=== PATIENT | female | born 1960 | race American Indian/Alaskan Native ===

== ENCOUNTER → 2018-05-31 09:36 | Outpatient (CLI) | payer MEDICARE, SELFPAY ==
[2018-05-31 09:55] LABS: International Normalized Ratio 3.4; Prothrombin Time (Protime)PT. 34.6 SECONDS (11.7-14.9)
== END ==
PROVIDERS: Family Provider Family Medicine; PCP Family Medicine; Referring Provider Family Medicine; Visit Provider Family Medicine
DX: Z95.2 Presence of prosthetic heart valve (principal); I48.91 Unspecified atrial fibrillation
CPT/HCPCS: 85610

== ENCOUNTER → 2018-11-29 10:55 | Outpatient (CLI) | payer MEDICARE, SELFPAY ==
[2016-08-06 08:31] VITALS: BMI 67.0
[2018-11-29 11:17] LABS: International Normalized Ratio 3.3; Prothrombin Time (Protime)PT. 33.8 SECONDS (11.7-14.9)
== END ==
PROVIDERS: Family Provider Family Medicine; PCP Family Medicine; Referring Provider Family Medicine; Visit Provider Family Medicine
DX: I48.91 Unspecified atrial fibrillation (principal); Z95.2 Presence of prosthetic heart valve
CPT/HCPCS: 85610

== ENCOUNTER → 2019-03-28 11:05 | Outpatient (CLI) | payer MEDICARE, SELFPAY ==
[2016-08-06 08:31] VITALS: BMI 67.0
[2019-03-28 11:26] LABS: International Normalized Ratio 2.1; Prothrombin Time (Protime)PT. 23.6 SECONDS (11.7-14.9)
== END ==
PROVIDERS: Family Provider Family Medicine; PCP Family Medicine; Referring Provider Family Medicine; Visit Provider Family Medicine
DX: I48.91 Unspecified atrial fibrillation (principal); Z95.2 Presence of prosthetic heart valve
CPT/HCPCS: 85610

== ENCOUNTER → 2019-05-10 13:29 | Outpatient (CLI) | payer MEDICARE, SELFPAY ==
[2016-08-06 08:31] VITALS: BMI 67.0
[2019-05-10 13:56] LABS: International Normalized Ratio 2.3; Prothrombin Time (Protime)PT. 25.2 SECONDS (11.7-14.9)
== END ==
PROVIDERS: Family Provider Family Medicine; PCP Family Medicine; Referring Provider Family Medicine; Visit Provider Family Medicine
DX: I48.91 Unspecified atrial fibrillation (principal); Z95.2 Presence of prosthetic heart valve
CPT/HCPCS: 85610

== ENCOUNTER → 2019-05-24 15:33 | Outpatient (CLI) | payer MEDICARE, SELFPAY ==
[2019-05-24 16:33] LABS: International Normalized Ratio 2.8
== END ==
PROVIDERS: Family Provider Family Medicine; PCP Family Medicine; Referring Provider Family Medicine; Visit Provider Family Medicine
DX: Z95.2 Presence of prosthetic heart valve (principal); I48.91 Unspecified atrial fibrillation
CPT/HCPCS: 85610

== ENCOUNTER → 2019-06-01 12:02 | Outpatient (CLI) | payer MEDICARE, SELFPAY ==
[2016-08-06 08:31] VITALS: BMI 67.0
[2019-06-01 12:15] LABS: International Normalized Ratio 3.1; Prothrombin Time (Protime)PT. 31.9 SECONDS (11.7-14.9)
== END ==
PROVIDERS: Family Provider Family Medicine; PCP Family Medicine; Visit Provider Nurse Practitioner Primary Care
DX: K62.5 Hemorrhage of anus and rectum (principal)
CPT/HCPCS: 85610

== ENCOUNTER → 2019-06-23 12:14 | Outpatient (CLI) | payer MEDICARE, SELFPAY ==
[2019-06-23 12:36] LABS: International Normalized Ratio 2.8
== END ==
PROVIDERS: Family Provider Family Medicine; PCP Family Medicine; Referring Provider Family Medicine; Visit Provider Family Medicine
DX: I48.91 Unspecified atrial fibrillation (principal); Z95.2 Presence of prosthetic heart valve
CPT/HCPCS: 85610

== ENCOUNTER → 2019-09-13 08:41 | Outpatient (CLI) | payer MEDICARE, SELFPAY ==
[2019-09-13 09:26] LABS: Base Excess 2 mmol/L (-2 to +2); Bicarbonate 27.4 mmol/L (22-26); Blood Gas Specimen Type ART; O2 Delivery Device Room Air; PO2 78 mmHG (75-100); SITE R Brachial; SO2 95 % (95-99); Time Given 912; Total Carbon Dioxide 29 mmol/L; pCO2 45.4 mmHg (35-45); pH 7.39 (7.35-7.45)
== END ==
LOC: PSN 08:44
PROVIDERS: PCP Family Medicine; Referring Provider Internal Medicine Pulmonary Disease; Visit Provider Internal Medicine Pulmonary Disease
DX: E66.2 Morbid (severe) obesity with alveolar hypoventilation (principal); R09.02 Hypoxemia; G47.33 Obstructive sleep apnea (adult) (pediatric)
CPT/HCPCS: 36600; 82803

== ENCOUNTER → 2021-01-23 13:34 | Outpatient (CLI) | payer MEDICARE, SELFPAY ==
[2021-01-23 17:40] LABS: Albumin, Serum 3.2 g/dL (3.2-5.0); BUN 20 mg/dL (7-18); BUN/Creat Ratio 15.4 RATIO (10-20); Calcium,Total 8.9 mg/dL (8.5-10.1); Chloride 108 mmol/L (98-107); EST Glomerular Filtration Rate 44 mL/min (>60); Est Glom Filt Rate - Afr Amer 53 mL/min (>60); Glucose 88 mg/dL (74-106); Phosphorus 2.7 mg/dL (2.5-4.9); Potassium 4.1 mmol/L (3.5-5.1); Sodium Level 144 mmol/L (136-145)
== END ==
PROVIDERS: PCP Family Medicine; Visit Provider Internal Medicine Nephrology
DX: E87.6 Hypokalemia (principal)
CPT/HCPCS: 36415; 80069

== ENCOUNTER 2021-05-22 17:59 | Emergency (ER) | payer MEDICARE, SELFPAY ==
[2021-05-22 17:59] VITALS: PULSE 72; RESP 16; TEMP 37.2; O2SAT 95; BMI 58.3
[2021-05-22 18:46] LABS: Absolute Lymphocyte Count 1.13 X10^3/uL (0.83-4.51); Absolute Neutrophil Count 3.6 X10^3/uL (2.0-7.7); Basophil# 0.05 X10^3/uL; Basophil% 0.9 % (0-1); Eosinophils% 3.7 % (0-5); Hematocrit 39.7 % (37-47); Hemoglobin 11.6 g/dL (12.0-15.0); Lymphocyte # 1.13 X10^3/ul (0.83-4.51); Lymphocyte % 20.7 % (19-41); Mean Corp Hgb Conc 29.2 g/dL (32-36); Mean Corpuscular Hgb 25.4 pg (27.0-32.0); Mean Corpuscular Volume 87.1 fL (81-99); Mean Platelet Vol. 9.1 fl (6.2-12.0); Monocyte# 0.49 X10^3/uL; NRBC Flagged by Analyzer 0 % (0-5); Neutrophil # 3.58 X10^3/uL (2.7-7.7); Neutrophil % 65.3 % (47-70); Platelet Count 321 K/mm3 (150-450); RBC Distribution Width CV 19.5 % (11.6-14.6); RBC Distribution Width SD 61.9 fl (35.1-43.9); Red Blood Count 4.56 M/mm3 (4.2-5.4); White Blood Count 5.5 K/mm3 (4.4-11.0)
[2021-05-22 18:54] LABS: Prothrombin Time (Protime)PT. 21.7 SECONDS (11.7-14.9)
[2021-05-22 19:02] LABS: Anion Gap 2 (5-15); BUN 22 mg/dL (7-18); BUN/Creat Ratio 20.8 RATIO (10-20); Calcium,Total 8.6 mg/dL (8.5-10.1); Chloride 111 mmol/L (98-107); Creatinine, Serum 1.06 mg/dL (0.55-1.02); EST Glomerular Filtration Rate 56 mL/min (>60); Est Glom Filt Rate - Afr Amer 67 mL/min (>60); Estimated Creatinine Clearance 41.52 ml/min; Glucose 112 mg/dL (74-106); Potassium 4.4 mmol/L (3.5-5.1); Sodium Level 145 mmol/L (136-145)
--- NOTE | 2021-05-22 19:27 | EX.ED.DYSGE1 ---
HPI History of Present Illness Chief Complaint: Complaint Informant: patient Narrative Narrative: Very pleasant 60-year-old female presents to the emergency department for the evaluation of hematuria while taking Coumadin. Patient states that she has had lower abdominal cramping. This morning she noticed a small amount of blood in the urine and again this afternoon. She last had her INR checked last week and it was 3.4. She does have a mechanical heart valve. Patient denies any dysuria or urinary frequency. No CVA pain nausea or fevers. PFSH PFS Medical History (Updated 05/22/21 @ 21:[address] Yaniv Black DO) Coronary artery disease Hyperlipidemia Hypertension Morbid obesity due to excess calories Peripheral vascular occlusive disease Venous ulcer of left leg Home Medications Coumadin 5 mg PO DAILY 07/02/16 [History Last Taken Unknown] aspirin 81 mg PO DAILY@0800 07/02/16 [History Last Taken Unknown] ferrous sulfate 325 mg PO BIDCM 07/02/16 [History Last Taken Unknown] folic acid 1 mg PO DAILY@0800 07/02/16 [History Last Taken Unknown] furosemide 20 mg PO DAILY 07/02/16 [History Last Taken Unknown] metoprolol tartrate 25 mg PO BID 07/02/16 [History Last Taken Unknown] simvastatin 20 mg PO QHS 07/02/16 [History Last Taken Unknown] amiodarone 200 mg PO DAILY 05/22/21 [History Last Taken Unknown] sulfamethoxazole-trimethoprim 1 tab PO BID #10 tablet 05/22/21 [Rx Last Taken Unknown] Allergy/AdvReac Type Severity Reaction Status Date / Time levofloxacin [From Levaquin] Allergy Hives Verified 05/22/21 18:02 morphine Allergy Hives Verified 05/22/21 18:02 prednisone Allergy Hives Verified 05/22/21 18:02 Surgical History History of umbilical hernia repair Mechanical heart valve present Social History (Updated 05/22/21 @ 19:[address] Yaniv Black DO) Smoking Status: Never smoker substance use type: does not use ROS ROS ED Constitutional Constitutional ED: Denies chills or weight loss Eyes Eyes: Denies change in vision or diplopia ENT ENT ED: Denies ear pain, rhinorrhea or sore throat Cardiovascular Cardiovascular: Denies chest pain, orthopnea, palpitations or racing heartbeat Respiratory/Chest Respiratory/Chest: Denies cough, dyspnea or orthopnea Gastrointestinal Gastrointestinal: Reports abdominal pain; Denies diarrhea, nausea or vomiting Genitourinary Genitourinary ED: Reports hematuria; Denies dysuria or urinary frequency Musculoskeletal Musculoskeletal: Denies arthralgias or myalgias Integumentary Denies abscess or rash Neurologic Neurologic: Denies headache(s) or weakness Psychiatric Psychiatric: Denies anxiety, depression, suicidal ideation or suicidal thoughts Endocrine Endocrinology: Denies polydipsia, polyphagia or polyuria Allergic/Immunologic Allergic/Immunologic ED: Denies mouth swelling, tongue swelling or urticaria EXAM Physical Exam Const Vital Signs: 05/22/21 17:59 05/22/21 20:00 Temperature 99.0 F Temperature Source Temporal Pulse Rate 72 Respiratory Rate 16 17 Pulse Ox 95 Oxygen Delivery Method Room Air Positive well nourished, well developed and obese General Appearance ED: well developed Nutritional Appearance: obese HEENT Reports normocephalic, head/scalp atraumatic and moist mucous membranes Eyes PERRL and EOMs intact bilaterally Neck no lymphadenopathy, supple and no JVD Resp normal respiratory effort and clear to auscultation bilaterally Cardio regular rate, regular rhythm and no murmurs GI normal to inspection, nondistended, normoactive bowel sounds and non-tender Palpation: soft Back/Spine no CVA tenderness and normal ROM Extremity normal to inspection General Extremety ED: Negative for edema General Extremity: Negative for edema Neuro oriented x3 and CN's II-XII intact bilaterally Sensorium / Orientation: alert Motor Exam: strength 5/5 throughout Psych mental status grossly normal Mood & Affect: Negative for depressed or tearful Skin no rashes or lesions noted and no wounds MDM MDM MDM Narrative Medical decision making narrative: Patient's white count is 5.5. Her INR is low at 2. I advised her to go ahead and take an extra dose of Coumadin tonight and I would expect a slight elevation based on antibiotics that she is to be taking. She has a way to check it at home and so I asked her to check it on Wednesday to see where it is at. Her urinalysis is contaminated. Rare bacteria 25-50 white cells and greater than 100 red blood cells. Negative nitrates positive leukocyte esterase. Patient was advised to drink plenty of fluids to return if there is fever flank pain or urinary retention. If her symptoms does not improve refer her to urology. Lab Data Attestation: I reviewed the patient's lab results. Labs: Laboratory Results - last 24 hr 05/22/21 05/22/21 05/22/21 18:40 18:40 18:40 WBC 5.5 RBC 4.56 Hgb 11.6 L Hct 39.7 MCV 87.1 MCH 25.4 L MCHC 29.2 L RDW Std Deviation 61.9 H RDW Coeff of Ab 19.5 H Plt Count 321 MPV 9.1 Immature Gran % (Auto) 0.400 Neut % (Auto) 65.3 Lymph % (Auto) 20.7 [place] % (Auto) 9.0 Eos % (Auto) 3.7 Baso % (Auto) 0.9 Absolute Neuts (auto) 3.6 Absolute Lymphs (auto) 1.13 Nucleated RBC % 0 PT 21.7 H INR 2.0 Sodium 145 Potassium 4.4 Chloride 111 H Carbon Dioxide 32.0 Anion Gap 2 L BUN 22 H Creatinine 1.06 H Estim Creat Clear Calc 41.52 Est GFR (MDRD) Af Amer 67 Est GFR (MDRD) Non-Af 56 L BUN/Creatinine Ratio 20.8 H Glucose 112 H Calcium 8.6 Urine Color Urine Clarity Urine pH Ur Specific [place] Urine Protein Urine Glucose (UA) Urine Ketones Urine Occult Blood Urine Nitrite Urine Bilirubin Urine Urobilinogen Ur Leukocyte Esterase Urine RBC Urine WBC Ur Squamous Epith Cells Amorphous Sediment Urine Bacteria Urine Mucus 05/22/21 20:00 WBC RBC Hgb Hct MCV MCH MCHC RDW Std Deviation RDW Coeff of Ab Plt Count MPV Immature Gran % (Auto) Neut % (Auto) Lymph % (Auto) [place] % (Auto) Eos % (Auto) Baso % (Auto) Absolute Neuts (auto) Absolute Lymphs (auto) Nucleated RBC % PT INR Sodium Potassium Chloride Carbon Dioxide Anion Gap BUN Creatinine Estim Creat Clear Calc Est GFR (MDRD) Af Amer Est GFR (MDRD) Non-Af BUN/Creatinine Ratio Glucose Calcium Urine Color Yellow Urine Clarity Cloudy Urine pH 5.0 Ur Specific [place] 1.025 Urine Protein 100 H Urine Glucose (UA) Normal Urine Ketones 5 H Urine Occult Blood 250 H Urine Nitrite Negative Urine Bilirubin Negative Urine Urobilinogen 1 H Ur Leukocyte Esterase 500 H Urine RBC > 100 SEEN Urine WBC 25-50 SEEN Ur Squamous Epith Cells 10-25 SEEN Amorphous Sediment 2+ URATE Urine Bacteria RARE Urine Mucus 0 SEEN Discharge Plan Triage Chief Complaint: Complaint ED Provider: Yaniv Black Dx/Rx/DC Orders Clinical Impression: Acute hemorrhagic cystitis Instructions: ED Hematuria Prescriptions: New sulfamethoxazole-trimethoprim [sulfamethoxazole-trimethoprim] 1 TABLET tablet 1 tab PO BID Qty: 10 RF: 0 No Action simvastatin 20 MG tablet 20 mg PO QHS RF: 0 ferrous sulfate 325 MG tablet 325 mg PO BIDCM RF: 0 metoprolol tartrate 50 MG tablet 25 mg PO BID RF: 0 aspirin 81 MG tablet,chewable 81 mg PO DAILY@0800 RF: 0 folic acid 1 MG tablet 1 mg PO DAILY@0800 RF: 0 furosemide 20 MG tablet 20 mg PO DAILY RF: 0 Coumadin Tablet.Orl 5 mg PO DAILY RF: 0 amiodarone 200 mg tablet 200 mg PO DAILY RF: 0 Primary Care Provider: Eric Goddard Referrals: Eric Goddard MD [Primary Care Provider] - Smith Mccoy MD [STAFF PHYSICIAN] - 3-5 Days if not improving Disposition Disposition: Home, Self Care
[2021-05-22 20:00] VITALS: RESP 17
[2021-05-22 20:12] LABS: Mucous, Urine 0 SEEN /hpf (<or=2+)
[2021-05-22 20:14] LABS: Color, Urine Yellow (Yellow); Glucose, Dipstick Normal (Normal); Ketone-Dipstick 5 mg/dl (Negative); Leukocyte Esterase-Dipstick 500 /ul (Negative); Nitrite-Dipstick Negative (Negative); Occult Blood-Urine 250 /ul (Negative); Protein-Dipstick 100 mg/dl (Negative); Specific Gravity, Urine 1.025 (1.002-1.030); Urine Bilirubin Dipstick Negative (Negative); Urine Clarity Cloudy (Clear); Urine Urobilinogen 1 mg/dl (Normal)
[2021-05-22 20:45] LABS: Amorphous Sediment 2+ URATE; Bacteria RARE /hpf (None Seen); Red Blood Cells-Urine > 100 SEEN /hpf (0-5); Squamous Epithelial Cells - UA 10-25 SEEN /hpf (5-10); White Blood Cells 25-50 SEEN /hpf (0-5)
[2021-05-22] MEDS: Smz/Tmp Ds Tablet 1 TABLET PO (21:10)
[2021-05-22 21:17] VITALS: RESP 17
== END 2021-05-22 21:17 | disposition home or self-care (01) ==
PROVIDERS: Emergency Provider Emergency Medicine; PCP Family Medicine
DX: N30.01 Acute cystitis with hematuria (principal); E66.9 Obesity, unspecified; I25.10 Atherosclerotic heart disease of native coronary artery without angina pectoris; E78.5 Hyperlipidemia, unspecified; I10 Essential (primary) hypertension; Z79.01 Long term (current) use of anticoagulants; Z79.82 Long term (current) use of aspirin; Z79.899 Other long term (current) drug therapy
CPT/HCPCS: 80048; 81001; 85025; 85610; 99283; A4216

== ENCOUNTER → 2022-06-29 | Outpatient (CLI) | payer MEDICARE, SELFPAY ==
--- NOTE | 2022-06-29 09:30 | RAD_ITS ---
PROCEDURE: Sniff test. DATE OF EXAMINATION: 06/29/2022. INDICATION: Female, 62 years old. Dyspnea FLUOROSCOPY TIME (if supplied): (18 seconds) minutes/seconds. 2 images were submitted. RAD/Fluoroscopy 1 Hr or Less IMPRESSION: Normal examination. Electronically Signed: Deon Jerez MD at 14:31 EST ,
--- NOTE | 2022-06-29 09:45 | RAD_ITS ---
STUDY: X-RAY CHEST REASON FOR EXAM: Female, 62 years old. DYSPNEA TECHNIQUE: Frontal and lateral views of the chest. COMPARISON: None. FINDINGS: The lungs are clear and expanded. There is small right pleural effusion. There is moderate cardiac enlargement. Normal mediastinum and tommy. There is prominence of the pulmonary hilar arteries without peripheral pulmonary vascular congestion, suggesting pulmonary hypertension. Normal visualized aortic arch and descending thoracic aorta. Normal visualized thoracic spine. There is degenerative osteoarthritis of the bilateral shoulders. There is no demonstrated abnormality of the visualized soft tissue structures of the upper abdomen. RAD/Chest PA and Lateral IMPRESSION: Small right pleural effusion. There is moderate cardiac enlargement. There is prominence of the pulmonary hilar arteries without peripheral pulmonary vascular congestion, suggesting pulmonary hypertension. Electronically Signed: Haley Carrion MD at 5:58 EST ,
[2022-06-29 10:15] LABS: Base Excess 4 mmol/L (-2 to +2); Bicarbonate 29.8 mmol/L (22-26); Blood Gas Specimen Type ART; O2 Delivery Device Room Air; PO2 47 mmHG (75-100); SITE L Radial; SO2 78 % (95-99); Total Carbon Dioxide 32 mmol/L; pCO2 59.2 mmHg (35-45); pH 7.31 (7.35-7.45)
== END | disposition home or self-care (01) ==
PROVIDERS: PCP Family Medicine; Referring Provider Internal Medicine Pulmonary Disease; Visit Provider Internal Medicine Pulmonary Disease
DX: R06.00 Dyspnea, unspecified (principal)
CPT/HCPCS: 36600; 71046; 76000; 82803